=== PATIENT | female | born 1975 | race Caucasian/White ===

== ENCOUNTER 2020-08-21 12:07 | Outpatient (REF) | payer OTHER, SELFPAY ==
[2020-08-21 13:54] LABS: MANUAL DIFF FLAG NO
[2020-08-21 14:13] LABS: Basophils Percent Auto 0.3 % (0-2); Eosinophils Absolute Auto 0.1 X10*3/uL (0.0-0.4); Eosinophils Percent Auto 1.1 % (0-4); Hematocrit 39.6 % (37-47); Hemoglobin 13.2 g/dl (12.0-16.0); Imm Gran Abs Auto 0.01 X10*3/uL (0.00-0.03); Imm Gran Pct Auto 0.2 % (0.0-0.4); Lymphocytes Percent Auto 33.3 % (20-40); Mean Corpuscular HGB Conc 33.3 g/dl (31.0-35.0); Mean Corpuscular Volume 95.9 fL (80-98); Mean Platelet Volume 10.2 fL (9.4-12.3); Monocytes Absolute Auto 0.5 X10*3/uL (0.1-1.2); Monocytes Percent Auto 7.5 % (2-11); Neutrophils Absolute Auto 3.5 X10*3/uL (2.0-8.3); Neutrophils Percent Auto 57.6 % (45-73); Platelet Count 278 X10*3/uL (160-400); Red Blood Count 4.13 X10*6/uL (4.20-5.50); Red Cell Distribution Width 11.2 % (11.0-16.0); White Blood Count 6.1 X10*3/uL (4.8-10.8)
[2020-08-21 14:22] LABS: Alanine Aminotransferase 14 U/L (0-31); Alkaline Phosphatase 53 U/L (39-117); Amylase 30 U/L (28-100); Anion Gap 13 (12-20); Aspartate Amino Transferase 15 U/L (5-31); Bilirubin Total 0.5 mg/dL (0.0-1.0); Blood Urea Nitrogen 13 mg/dL (9-16); C Reactive Protein 0.82 mg/dL (< or = 0.50); Calcium 8.7 mg/dL (8.4-10.2); Carbon Dioxide 24 mmol/L (22-29); Chloride 105 mmol/L (96-108); Estimated Glomerular Filt Rate > 60; Glucose Random 88 mg/dL (60-115); Iron 75 mcg/dL (30-160); Lipase 13 U/L (8-78); Percent Iron Saturation 25 % (15-50); Potassium 4.2 mmol/L (3.3-5.1); Sodium 138 mmol/L (135-145); Total Iron Binding Capacity 295 mcg/dL (228-428); Total Protein 6.6 g/dL (6.5-8.0); Unsaturated Iron Binding 220 ug/dL
[2020-08-21 14:53] LABS: Erythrocyte Sedimentation Rate 9 MM/HR (0-20)
== END 2020-08-21 12:08 | disposition home or self-care (01) ==
LOC: HO.LAB 12:07
PROVIDERS: PCP Internal Medicine; Visit Provider Physician Assistant
DX: R10.9 Unspecified abdominal pain (principal)
CPT/HCPCS: 36415; 80053; 82150; 83540; 83690; 85025; 85652; 86140

== ENCOUNTER 2020-09-21 07:05 | Outpatient (REF) | payer OTHER, SELFPAY ==
--- NOTE | ~2020-09-21 | CT_ITS ---
EXAMINATION: CT ABDOMEN AND PELVIS WITHOUT CONTRAST CLINICAL INFORMATION: Abdominal pain COMPARISON: None TECHNIQUE: Multidetector volumetric imaging was performed from the superior aspect of the liver through the pubic symphysis. Sagittal and coronal reformatted images were obtained on the technologist's workstation. This CT examination was performed using dose optimization techniques as appropriate, variously including the following: *Automated exposure control *Adjustment of mA and/or kV according to patient size (this includes techniques or standardized protocols for targeted exams where dose is matched to indication/reason for exam; i.e. extremities or head) *Use of iterative reconstruction technique DLP: 481 mGy-cm FINDINGS: LUNG BASES: The lung bases are clear. The heart size is normal. LIVER, GALLBLADDER, AND BILIARY TREE: The liver is normal in size, shape, and attenuation. No focal hepatic lesion or biliary ductal dilatation is present. The gallbladder is unremarkable with no evidence of radiopaque gallstones, gallbladder wall thickening, or obvious pericholecystic inflammatory changes. PANCREAS: Unremarkable. SPLEEN: Unremarkable. ADRENAL GLANDS: Unremarkable. KIDNEYS AND URETERS: The kidneys are normal in size, shape, and attenuation. No hydronephrosis, hydroureter, or calculi seen. No perinephric stranding. BLADDER: Unremarkable. GASTROINTESTINAL TRACT: There is scattered stool and oral contrast seen in colon without distention. The small bowel loops are normal caliber. Appendix is normal caliber. ABDOMINAL WALL: Negative a tiny umbilical hernia containing fat LYMPH NODES: Normal. VASCULAR: Unremarkable. PELVIC VISCERA: The uterus is anteverted with radiopaque calcifications along the anterior uterine wall. No pelvic mass or free fluid seen. No abnormal inguinal or pelvic lymphadenopathy seen.. OSSEOUS STRUCTURES: No lytic or sclerotic process seen. CT/CT abdomen pelvis wo con IMPRESSION: No acute intra-abdominal process seen. Minimal constipation.
[2020-09-21] MEDS: Barium Sulfate Oral (Mocha) 450 ML ORAL.SUSP 900 ML PO (09:37)
== END 2020-09-21 07:06 | disposition home or self-care (01) ==
LOC: HO.CT 07:05
PROVIDERS: PCP Internal Medicine; Visit Provider Physician Assistant
DX: R10.9 Unspecified abdominal pain (principal)
CPT/HCPCS: 74176

== ENCOUNTER 2022-01-09 16:01 | Outpatient (REF) | payer BC, SELFPAY ==
--- NOTE | ~2022-01-09 | XR_ITS ---
EXAMINATION: XR CHEST CLINICAL INFORMATION: Acute bronchitis COMPARISON: None TECHNIQUE: 2 views of the chest were obtained. FINDINGS: There is central bronchial wall thickening consistent with history of bronchitis. No focal consolidation. No pleural effusion or pneumothorax. Normal heart size. Regional skeleton intact. XR/XR chest 2V IMPRESSION: Central bronchial wall thickening consistent with history of bronchitis. No focal consolidation seen.
== END 2022-01-09 16:02 | disposition home or self-care (01) ==
LOC: HO.XRAY 16:01
PROVIDERS: PCP Internal Medicine; Visit Provider Physician Assistant
DX: J20.8 Acute bronchitis due to other specified organisms (principal)
CPT/HCPCS: 71046

== ENCOUNTER 2022-08-13 15:56 | Outpatient (REF) | payer BC, SELFPAY ==
[2022-08-13 16:27] LABS: MANUAL DIFF FLAG NO
[2022-08-13 17:24] LABS: Basophils Percent Auto 0.5 % (0-2); Eosinophils Absolute Auto 0.1 X10*3/uL (0.0-0.4); Hematocrit 40.5 % (37.0-47.0); Hemoglobin 13.5 g/dl (12.0-16.0); Imm Gran Abs Auto 0.01 X10*3/uL (0.00-0.03); Imm Gran Pct Auto 0.2 % (0.0-0.4); Lymphocytes Absolute Auto 2.2 X10*3/uL (1.2-4.9); Lymphocytes Percent Auto 35.6 % (20-40); Mean Corpuscular HGB Conc 33.3 g/dl (31.0-35.0); Mean Corpuscular Hemoglobin 31.8 pg (27.0-33.0); Mean Corpuscular Volume 95.5 fL (80.0-98.0); Mean Platelet Volume 10.1 fL (9.4-12.3); Monocytes Absolute Auto 0.4 X10*3/uL (0.1-1.2); Monocytes Percent Auto 6.2 % (2-11); Neutrophils Absolute Auto 3.4 x10*3/uL (2.0-8.3); Neutrophils Percent Auto 55.5 % (45-73); Platelet Count 282 X10*3/uL (160-400); Red Blood Count 4.24 X10*6/uL (4.20-5.50); Red Cell Distribution Width 11.5 % (11.0-16.0); White Blood Count 6.1 X10*3/uL (4.8-10.8)
[2022-08-13 18:05] LABS: Alanine Aminotransferase 24 U/L (0-31); Albumin Level 4.4 g/dL (3.5-5.0); Alkaline Phosphatase 53 U/L (39-117); Anion Gap 13 (12-20); Aspartate Amino Transferase 23 U/L (5-31); Bilirubin Total 0.5 mg/dL (0.0-1.0); Blood Urea Nitrogen 16 mg/dL (9-16); C Reactive Protein 0.22 mg/dL (< or = 0.50); Calcium 9.5 mg/dL (8.4-10.2); Carbon Dioxide 25 mmol/L (22-29); Chloride 105 mmol/L (96-108); Estimated Glomerular Filt Rate > 60; Glucose Random 91 mg/dL (60-115); Magnesium 2.2 mg/dL (1.6-2.6); Potassium 3.9 mmol/L (3.3-5.1); Sodium 139 mmol/L (135-145); Total Protein 7.2 g/dL (6.5-8.0)
[2022-08-13 18:11] LABS: Erythrocyte Sedimentation Rate 7 MM/HR (0-20)
[2022-08-13 18:33] LABS: Folate 10.8 ng/mL (> or = 4.0); Vitamin B12 230 pg/mL (200-900)
[2022-08-15 09:14] LABS: Follicle Stimulating Hormone 24.2 mIU/mL; Lutenizing Hormone 29.1 mIU/mL; Prolactin 9.2 ng/mL
[2022-08-15 13:22] LABS: Anti DNA DS Antibody <1 IU/mL
[2022-08-15 22:53] LABS: Immunoglobulin A 237 mg/dL (47-310)
[2022-08-16 14:03] LABS: Anti Nuclear Antibody Screen NEGATIVE (NEGATIVE)
[2022-08-18 16:03] LABS: Cyclic Citrullinated Peptide <16 UNITS
[2022-08-19 15:48] LABS: Vitamin B1 10 nmol/L (8-30)
[2022-08-19 23:59] LABS: Progesterone 0.5 ng/mL
[2022-08-20 10:43] LABS: Testosterone, Total 16 ng/dL (2-45)
[2022-08-21 09:18] LABS: Lyme Abs Screen <0.90 index
[2022-08-22 04:59] LABS: Estradiol Ultra Sensitive 98 pg/mL
[2022-08-23 12:18] LABS: Nicotinamide <20 ng/mL; Vit B3 - Nicotinic Acid <20 ng/mL
== END 2022-08-13 15:57 | disposition home or self-care (01) ==
LOC: HO.LAB 15:56
PROVIDERS: PCP Internal Medicine; Visit Provider Physician Assistant
DX: N95.8 Other specified menopausal and perimenopausal disorders (principal); R22.0 Localized swelling, mass and lump, head; H35.52 Pigmentary retinal dystrophy; M31.8 Other specified necrotizing vasculopathies
CPT/HCPCS: 36415; 80053; 82550; 82607; 82670; 82746; 82784; 83001; 83002; 83735; 84144; 84146; 84403; 84425; 84591; 84681; 85025; 85652; 86038; 86140; 86200; 86225; 86617; 86618

== ENCOUNTER 2022-08-19 | Outpatient (REF) | payer BC, SELFPAY | END 2022-08-19 00:01 | LOC: HO.MANLNP | PROVIDERS: Visit Provider Physician Assistant | DX: R21 Rash and other nonspecific skin eruption (principal) | CPT/HCPCS: 87070; 87205 ==

== ENCOUNTER 2023-02-24 15:48 | Outpatient (REF) | payer BC, SELFPAY | END 2023-02-24 15:49 | disposition home or self-care (01) | LOC: HO.XRAY 15:48 | PROVIDERS: PCP Internal Medicine; Visit Provider Physician Assistant | DX: R05.2 Subacute cough (principal) | CPT/HCPCS: 71046 ==